=== PATIENT | male | born 1960 | race Caucasian/White ===

== ENCOUNTER 2017-05-06 19:01 | Emergency (ER) | payer OTHER ==
[2017-05-06 19:07] VITALS: BP 127/76; PULSE 84; RESP 18; TEMP 98.6; O2SAT 98
--- NOTE | 2017-05-06 20:13 | EDPHY ---
H & P Stated Complaint: l ankle inj Time Seen by Provider: 05/06/17 20:02 HPI/ROS: CHIEF COMPLAINT: Ankle pain HISTORY OF PRESENT ILLNESS: The patient is a 56-year-old man who comes to the emergency department complaining of pain in his left ankle. He states that he was jogging when he stepped on a root and inverted his ankle. He he denies other injuries. This happened about 2 hours ago. He is not able to walk on it. REVIEW OF SYSTEMS: Constitutional: denies: chills, fever, recent illness, recent injury EENTM: denies: blurred vision, double vision, nose congestion Respiratory: denies: cough, shortness of breath Cardiac: denies: chest pain, irregular heart rate, lightheadedness, palpitations Gastrointestinal/Abdominal: denies: abdominal pain, diarrhea, nausea, vomiting, blood streaked stools Genitourinary: denies: dysuria, frequency, hematuria, pain Musculoskeletal: See HPI Skin: denies: lesions, rash, jaundice, bruising Neurological: denies: headache, numbness, paresthesia, tingling, dizziness, weakness Hematologic/Lymphatic: denies: blood clots, easy bleeding, easy bruising Immunologic/allergic: denies: HIV/AIDS, transplant EXAM: GENERAL: Well-appearing, well-nourished and in no acute distress. HEAD: Atraumatic, normocephalic. EYES: Pupils equal round and reactive to light, extraocular movements intact, sclera anicteric, conjunctiva are normal. ENT: TMs normal, nares patent, oropharynx clear without exudates. Moist mucous membranes. NECK: Normal range of motion, supple without lymphadenopathy or JVD. LUNGS: Breath sounds clear to auscultation bilaterally and equal. No wheezes rales or rhonchi. HEART: Regular rate and rhythm without murmurs, rubs or gallops. ABDOMEN: Soft, nontender, normoactive bowel sounds. No guarding, no rebound. No masses appreciated. BACK: No CVA tenderness, no spinal tenderness, step-offs or deformities EXTREMITIES: Left ankle pain and swelling, lateral malleolar tenderness, no foot tenderness, no leg tenderness NEUROLOGICAL: Cranial nerves II through XII grossly intact. Normal speech, normal gait. 5/5 strength, normal movement in all extremities, normal sensation PSYCH: Normal mood, normal affect. SKIN: Warm, dry, normal turgor, no visible rashes or lesions. Source: Patient Exam Limitations: No limitations - Personal History Current Tetanus/Diphtheria Vaccine: Unsure - Medical/Surgical History Hx Asthma: No Hx Chronic Respiratory Disease: No Hx Diabetes: No Hx Cardiac Disease: No Hx Renal Disease: No Hx Cirrhosis: No Hx Alcoholism: No Hx HIV/AIDS: No Hx Splenectomy or Spleen Trauma: No Other PMH: clavicle fx - Family History Significant Family History: No pertinent family hx - Social History Smoking Status: Never smoked Alcohol Use: Sober Drug Use: None Constitutional: Initial Vital Signs Temperature (C) 37 C 05/06/17 19:03 Heart Rate 84 05/06/17 19:03 Respiratory Rate 18 05/06/17 19:03 Blood Pressure 127/76 H 05/06/17 19:03 O2 Sat (%) 98 05/06/17 19:03 O2 Delivery Mode Room Air Allergies/Adverse Reactions: No Known Allergies Allergy (Unverified 05/06/17 19:03) Home Medications: Medication Instructions Recorded NK [No Known Home Meds] 05/06/17 Medical Decision Making - Diagnostics Imaging: Discussed imaging studies w/ yardage caller Radiologist ED Course/Re-evaluation: We discussed the x-ray results. The patient reassured. We discussed treatment of ankle sprains. He will be placed in a Velcro splint here today and given crutches. I advised him to be weight-bearing as tolerated. I will have him follow up with Orthopedics. Differential Diagnosis: Partial list of the Differential diagnosis considered include but were not limited to; ankle sprain, ankle fracture and although unlikely based on the history and physical exam, I also considered foot fracture, leg fracture, nerve injury, vascular injury. I discussed these differential diagnoses and the plan with the patient as well as the usual and expected course. The patient understands that the diagnosis is provisional and that in medicine we are not always correct and that further workup is often warranted. Usual and customary warnings were given. All of the patient's questions were answered. The patient was instructed to return to the emergency department should the symptoms at all worsen or return, otherwise to followup with the physician as we discussed. Departure - Departure Disposition: Home, Routine, Self-Care Clinical Impression: Left ankle sprain Qualifiers: Encounter type: initial encounter Involved ligament of ankle: unspecified ligament Qualified Code(s): S93.402A - Sprain of unspecified ligament of left ankle, initial encounter Condition: Fair Instructions: Ankle Sprain (ED), Ankle Stirrup Splint (ED) Additional Instructions: Weight-bearing as tolerated Referrals: NONE *PRIMARY CARE P,. [Primary Care Provider] - As per Instructions Tho Corado MD [Medical Doctor] - As per Instructions
== END 2017-05-06 20:46 | disposition home or self-care (01) ==
DX: S93.402A Sprain of unspecified ligament of left ankle, initial encounter (principal); X58.XXXA Exposure to other specified factors, initial encounter; Y99.8 Other external cause status; Y93.89 Activity, other specified
CPT/HCPCS: L4350